=== PATIENT | male | born 1980 | race Caucasian/White ===

== ENCOUNTER 2023-03-25 13:16 | Inpatient (IN) | payer OTHER ==
[2023-03-25 15:02] VITALS: BMI 24.4
[2023-03-25] MEDS ORDERED: NALOXONE HCL (KLOXXADO) 8 MG SPRAY NS PRN (16:01)
[2023-03-25] MEDS ORDERED: guaiFENesin 600 MG TABLET.ER (FP) PO PRN (16:01)
[2023-03-25] MEDS ORDERED: MAGNESIUM HYDROX 2400MG/30ML ORAL SUSPENSION 30 ML CUP PO PRN (16:01)
[2023-03-25] MEDS ORDERED: MAG HYDROX/AL HYDROX/SIMETH 30 ML UNIT-DOSE CUP PO PRN (16:01)
[2023-03-25] MEDS ORDERED: BENZOCAINE/MENTHOL (CHLORASEPTIC ) LOZENGE MM PRN (16:01)
[2023-03-25] MEDS ORDERED: BENZONATATE 200 MG CAPSULE PO PRN (16:01)
[2023-03-25] MEDS ORDERED: POLYETHYLENE GLYCOL (HEALTHYLAX) 3350 17 GM PACKET PO PRN (16:01)
[2023-03-25] MEDS ORDERED: NALOXONE HCL 0.4 MG/ML VIAL IM PRN (16:01)
[2023-03-25] MEDS ORDERED: LOPERAMIDE HCL 2 MG CAPSULE PO PRN (16:01)
[2023-03-25] MEDS ORDERED: TUBERCULIN PPD 5 TU/0.1ML VIAL ID ONE ×2 (18:39→21:29)
[2023-03-25] MEDS: ACETAMINOPHEN 325 MG TABLET (FP) PO PRN (18:54)
[2023-03-25] MEDS: PRENATAL VITAMINS W/ FOLIC ACID TABLET (FP) PO SCH (21:22)
[2023-03-25] MEDS: MELATONIN 5 MG TABLETS PO SCH (21:22)
[2023-03-25] MEDS: THIAMINE HCL 100 MG TABLET (FP) PO SCH (21:22)
[2023-03-25] MEDS: hydrOXYzine PAMOATE 25 MG CAPSULE (FP) PO PRN (21:23)
[2023-03-25] MEDS: TUBERCULIN PPD 5 TU/0.1ML SYRINGE (IN PATIENT USE ONLY) ID ONE (21:27)
[2023-03-26] MEDS: IBUPROFEN 600 MG TABLET (FP) PO PRN (01:58)
[2023-03-26] MEDS ORDERED: methaDONE HCL 40 MG DISPERSABLE TABLET PO SCH (08:15)
[2023-03-26 11:10] LABS: HEMATOCRIT 36.8 % (35.4-49); HEMOGLOBIN 12.7 GM/dL (11.7-16.9); MCH 30.8 pg (25.7-33.7); MCHC 34.5 g/dl (32.0-35.9); MEAN CELL VOLUME 89.3 fl (80-96); MEAN PLT VOLUME 7.8 fl (7.5-11.1); PLATELET COUNT 254 10^3/uL (134-434); RBC 4.12 M/mm3 (4.00-5.60); RDW 13.1 % (11.9-15.9); WHITE BLOOD COUNT 6.3 K/mm3 (4.0-10.0)
[2023-03-26 11:45] LABS: POTASSIUM 3.7 mmol/L (3.5-5.1)
[2023-03-26 11:47] LABS: ALBUMIN 3.5 g/dl (3.4-5.0); BLOOD UREA NITROGEN 12.3 mg/dL (7-18); CALCIUM 9.1 mg/dL (8.5-10.1)
[2023-03-26 11:51] LABS: CREATININE 0.8 mg/dL (0.55-1.3)
[2023-03-26 11:52] LABS: BILIRUBIN,TOTAL 0.7 mg/dL (0.2-1); TOT PROT 7.5 g/dl (6.4-8.2)
[2023-03-26 11:53] LABS: URINE APPEARANCE CLEAR; URINE BILIRUBIN NEGATIVE (NEGATIVE); URINE COLOR YELLOW; URINE GLUCOSE (UA) NEGATIVE (NEGATIVE); URINE KETONE NEGATIVE (NEGATIVE); URINE LEUK ESTERASE NEGATIVE (NEGATIVE); URINE NITRITE NEGATIVE (NEGATIVE); URINE PROTEIN NEGATIVE (NEGATIVE)
[2023-03-26 12:50] LABS: SYPHILIS W/ RPR CONF NON-REACTIVE (NONREACTIVE)
[2023-03-26] MEDS: clonazePAM 0.5 MG ODT TABLETS SL SCH (13:38)
[2023-03-26] MEDS: CHLORHEXIDINE GLUCONATE 0.12% 15ML CUP MM SCH (13:57)
[2023-03-26] MEDS: AMOX TR/POT CLAV 500MG/125MG TABLETS (FP) PO SCH (18:08)
[2023-03-26] MEDS: IBUPROFEN 400 MG TABLET (FP) PO PRN (20:13)
[2023-03-26] MEDS: BENZOCAINE 20 % GEL TUBE MM PRN (22:27)
[2023-03-27] MEDS: NICOTINE POLACRILEX 4 MG LOZENGE BC PRN (07:23)
[2023-03-29] MEDS ORDERED: BACITRACIN 0.9 GM PACKET TP PRN (17:42)
[2023-03-31] MEDS: GABAPENTIN 100 MG CAPSULE PO SCH (21:03)
[2023-04-06 06:48] VITALS: RESP 16
[2023-04-06] MEDS: clonazePAM 0.5 MG ODT TABLETS SL SCH (14:08)
[2023-04-07 06:39] VITALS: BP 113/77; PULSE 80; TEMP 97.2
== END 2023-04-07 09:12 | disposition home or self-care (01) | DRG 772 ==
LOC: YASAS 13:16 → Y3E 18:14
PROVIDERS: ADMIT Allergy & Immunology; ATTEND Psychiatry & Neurology Pain Medicine
PROC: HZ42ZZZ Group Counseling for Substance Abuse Treatment, Cognitive-Behavioral (ICD-10-PCS; principal; 2023-03-25)
DX: F11.20 Opioid dependence, uncomplicated (principal); F14.20 Cocaine dependence, uncomplicated; F13.20 Sedative, hypnotic or anxiolytic dependence, uncomplicated; F17.210 Nicotine dependence, cigarettes, uncomplicated; F19.280 Other psychoactive substance dependence with psychoactive substance-induced anxiety disorder; F19.282 Other psychoactive substance dependence with psychoactive substance-induced sleep disorder; F19.24 Other psychoactive substance dependence with psychoactive substance-induced mood disorder; F43.10 Post-traumatic stress disorder, unspecified; F41.9 Anxiety disorder, unspecified; K04.7 Periapical abscess without sinus; S91.331A Puncture wound without foreign body, right foot, initial encounter; W45.0XXA Nail entering through skin, initial encounter; W26.8XXA Contact with other sharp object(s), not elsewhere classified, initial encounter; Y92.238 Other place in hospital as the place of occurrence of the external cause
CPT/HCPCS: 36415; 80053; 81003; 85027; 86780; 86803; 87522; 87635; 93005; 93010

== ENCOUNTER 2023-09-21 15:04 | Inpatient (IN) | payer OTHER ==
[2023-09-21 16:00] VITALS: BMI 23.7
[2023-09-21] MEDS ORDERED: BENZONATATE 200 MG CAPSULE PO PRN (18:05)
[2023-09-21] MEDS ORDERED: guaiFENesin 600 MG TABLET.ER (FP) PO PRN (18:05)
[2023-09-21] MEDS ORDERED: MAGNESIUM HYDROX 2400MG/30ML ORAL SUSPENSION 30 ML CUP PO PRN (18:05)
[2023-09-21] MEDS ORDERED: IBUPROFEN 400 MG TABLET (FP) PO PRN (18:05)
[2023-09-21] MEDS ORDERED: NALOXONE HCL 0.4 MG/ML VIAL IM PRN (18:05)
[2023-09-21] MEDS ORDERED: BENZOCAINE/MENTHOL (CHLORASEPTIC ) LOZENGE MM PRN (18:05)
[2023-09-21] MEDS ORDERED: LOPERAMIDE HCL 2 MG CAPSULE PO PRN (18:05)
[2023-09-21] MEDS ORDERED: hydrOXYzine PAMOATE 25 MG CAPSULE (FP) PO PRN (18:05)
[2023-09-21] MEDS ORDERED: NALOXONE (NARCAN) HCL 4 MG/0.1 ML SPRAY NS PRN (18:05)
[2023-09-21] MEDS: MELATONIN 5 MG TABLETS PO SCH (22:02)
[2023-09-21] MEDS: clonazePAM 0.5 MG ODT TABLETS SL ONE (22:02)
[2023-09-21] MEDS: THIAMINE 100 MG TABLET PO SCH (22:02)
[2023-09-22] LABS: URINE APPEARANCE TURBID; URINE BILIRUBIN 1+ (NEGATIVE); URINE COLOR DK YELLOW; URINE GLUCOSE (UA) NEGATIVE (NEGATIVE); URINE KETONE NEGATIVE (NEGATIVE); URINE LEUK ESTERASE NEGATIVE (NEGATIVE); URINE NITRITE NEGATIVE (NEGATIVE); URINE PROTEIN NEGATIVE (NEGATIVE)
[2023-09-22] MEDS: methaDONE HCL 40 MG DISPERSABLE TABLET PO SCH (09:48)
[2023-09-22] MEDS: PRENATAL VITAMINS W/ FOLIC ACID TABLET (FP) PO SCH (09:48)
[2023-09-22 11:54] LABS: CHLORIDE 102 mmol/L (98-107); POTASSIUM 3.3 mmol/L (3.5-5.1); SODIUM 140 mmol/L (136-145)
[2023-09-22 11:57] LABS: HEMATOCRIT 36.6 % (35.4-49); HEMOGLOBIN 12.8 GM/dL (11.7-16.9); MCH 30.9 pg (25.7-33.7); MEAN CELL VOLUME 88.4 fl (80-96); MEAN PLT VOLUME 7.8 fl (7.5-11.1); PLATELET COUNT 223 10^3/uL (134-434); RBC 4.14 M/mm3 (4.00-5.60); RDW 13.4 % (11.9-15.9); WHITE BLOOD COUNT 4.1 K/mm3 (4.0-10.0)
[2023-09-22 11:59] LABS: ALBUMIN 3.4 g/dl (3.4-5.0); ANION GAP 6 mmol/L (4-13); CALCIUM 8.7 mg/dL (8.5-10.1); CO2 32 mmol/L (21-32); GLUCOSE,RANDOM 103 mg/dL (74-106)
[2023-09-22 12:00] LABS: BLOOD UREA NITROGEN 10.5 mg/dL (7-18)
[2023-09-22 12:03] LABS: CREATININE 0.9 mg/dL (0.55-1.3); SGPT/ALT 19 U/L (13-61)
[2023-09-22 12:04] LABS: BILIRUBIN,TOTAL 0.7 mg/dL (0.2-1); TOT PROT 6.8 g/dl (6.4-8.2)
[2023-09-22 12:05] LABS: ALK PHOS 63 U/L (45-117); SGOT/AST 13 U/L (15-37)
[2023-09-22] MEDS: NICOTINE POLACRILEX 2 MG GUM BUC PRN (12:38)
[2023-09-22 14:46] LABS: SYPHILIS W/ RPR CONF NON-REACTIVE (NONREACTIVE)
[2023-09-22] MEDS: clonazePAM 0.5 MG ODT TABLETS SL SCH (21:11)
[2023-09-23] MEDS: IBUPROFEN 600 MG TABLET (FP) PO PRN (10:17)
[2023-09-24] MEDS: clonazePAM 0.5 MG ODT TABLETS SL ONE (16:48)
[2023-09-24] MEDS: clonazePAM 0.5 MG ODT TABLETS SL SCH (21:14)
[2023-09-25] MEDS: POTASSIUM CHLORIDE ORAL LIQUID 20 MEQ/15 ML PO ONE (15:31)
[2023-09-25] MEDS: POTASSIUM CHLORIDE ORAL LIQUID 20 MEQ/15 ML PO SCH (21:24)
[2023-09-27] MEDS: ACETAMINOPHEN 325 MG TABLET (FP) PO PRN (13:58)
[2023-09-27] MEDS: MIRTAZAPINE 15 MG TABLET (FP) PO SCH (21:09)
[2023-09-28] MEDS ORDERED: PRENATAL VITAMINS W/ FOLIC ACID TABLET (FP) PO PRN (12:15)
[2023-09-30] MEDS: clonazePAM 1 MG ODT TABLETS SL SCH (21:36)
[2023-09-30] MEDS ORDERED: clonazePAM 0.25 MG ODT TABLETS SL SCH (22:00)
[2023-10-01] MEDS ORDERED: POVIDONE-IODINE 10% SOLN 118 ML BOTTLE TP PRN (10:30)
[2023-10-01] MEDS: MINERAL OIL/PET HY-PHL TOPICAL OINTMENT 454 GM JAR TP SCH (11:02)
[2023-10-02] MEDS: methaDONE HCL 40 MG DISPERSABLE TABLET PO ONE (05:59)
[2023-10-03] MEDS: methaDONE HCL 40 MG DISPERSABLE TABLET PO SCH (05:46)
[2023-10-06] MEDS: POLYETHYLENE GLYCOL (HEALTHYLAX) 3350 17 GM PACKET PO PRN (09:49)
[2023-10-09] MEDS: methaDONE HCL 40 MG DISPERSABLE TABLET PO SCH (05:45)
[2023-10-11] MEDS: MIRTAZAPINE 30 MG TABLET PO SCH (21:41)
[2023-10-12] MEDS: clonazePAM 1 MG ODT TABLETS SL SCH (14:11)
[2023-10-15] MEDS: MAG HYDROX/AL HYDROX/SIMETH 30 ML UNIT-DOSE CUP PO PRN (14:08)
[2023-10-16] MEDS: methaDONE HCL 40 MG DISPERSABLE TABLET PO SCH (06:32)
[2023-10-17 06:40] VITALS: RESP 18; TEMP 97.5
[2023-10-17 08:52] VITALS: BP 135/85; PULSE 90
== END 2023-10-17 09:23 | disposition home or self-care (01) | DRG 772 ==
LOC: YASAS 15:04 → Y5N 19:26 → Y3NR 19:52 → Y3W 09-22 17:52
PROVIDERS: ADMIT Allergy & Immunology; ATTEND Psychiatry & Neurology Pain Medicine
PROC: HZ42ZZZ Group Counseling for Substance Abuse Treatment, Cognitive-Behavioral (ICD-10-PCS; principal; 2023-09-21)
DX: F11.20 Opioid dependence, uncomplicated (principal); F14.20 Cocaine dependence, uncomplicated; F17.210 Nicotine dependence, cigarettes, uncomplicated; F43.10 Post-traumatic stress disorder, unspecified; F19.982 Other psychoactive substance use, unspecified with psychoactive substance-induced sleep disorder; F19.980 Other psychoactive substance use, unspecified with psychoactive substance-induced anxiety disorder; F19.94 Other psychoactive substance use, unspecified with psychoactive substance-induced mood disorder; F41.9 Anxiety disorder, unspecified; F32.A Depression, unspecified; L88 Pyoderma gangrenosum; G47.00 Insomnia, unspecified; E87.6 Hypokalemia; Z56.0 Unemployment, unspecified; Z59.01 Sheltered homelessness
CPT/HCPCS: 36415; 80053; 80305; 80307; 81003; 84132; 85027; 86780; 86803; 87522; 93005; 93010